=== PATIENT | female | born 1960 | race Caucasian/White ===

== ENCOUNTER → 2018-12-08 | Outpatient (CLI) | payer OTHER ==
[~2018-12-08] MED LIST: DHEA PO; EUTHYROX100 MCG PO; LEVO-T150 MCG PO; LIOT5 PO; TOCO1000 PO; VITAMIN B122500 MCG PO; VITAMIN D35000 UNIT PO
== END | disposition home or self-care (01) ==
LOC: PLD 07:53 → LAB SHORT 07:53
DX: L81.4 Other melanin hyperpigmentation (principal)
CPT/HCPCS: 88305

== ENCOUNTER → 2020-01-20 | Outpatient (CLI) | payer BC | LOC: LAB SHORT 07:26 → PLD 07:26 | DX: L57.0 Actinic keratosis (principal) | CPT/HCPCS: 88305 ==